=== PATIENT | female | born 1985 | race Caucasian/White ===

== ENCOUNTER 2016-12-27 10:41 | Emergency (ER) | payer MEDICAID ==
[~2016-12-27] VITALS: Ht 160 cm; Wt 93.1 kg
[~2016-12-27 10:41] MED LIST: FURO20TA8 PO; GABA-560 PO; INSU10SU6 SUBQ; IRON27TA PO; LANTUS IM/IV/SUBQ; METO-50 PO; SIMV20TA6 PO; ZAR2.5 PO
[2016-12-27 10:47] VITALS: BP 151/76
--- NOTE | 2016-12-27 10:55 | NUR ---
Patient ambulated ot bed 7. RN evaluating patient at bedside.
--- NOTE | 2016-12-27 10:59 | NUR ---
31F BIB FAMILY C/O LEFT HAND PAIN ONLY WITH MOVEMENT X YESTERDAY; MILD ERYTHEMA/SWELLING NOTED TO LEFT HAND AT THIS TIME; PT STATES " I THINK IT'S A SPIDER BITE"; LEFT RADIAL PULSE +3, LEFT CAP REFILL IMMEDIATE, NO LOSS OF SENSATION OR ROM TO LEFT HAND AT THIS TIME; PT STATES NO PAIN, N/V/D AT THIS TIME; PT AA&OX4, PERRLA, BL LUNG SOUNDS CLEAR, RR EVEN/UNLABORED, SKIN IS WARM/DRY/INTACT AT THIS TIME; STEADY GAIT; PT RESTING IN BED WITH HOB ELEVATED AND IN LOWEST POSITION; POSITIONED FOR COMFORT; ER MD MADE AWARE OF STATUS. WILL CONTINUE TO MONITOR.
--- NOTE | 2016-12-27 11:14 | NUR ---
ER MD DR. ABDULLAHI EVALUATING PT AT BEDSIDE.
[2016-12-27 11:33] VITALS: BP 146/83
--- NOTE | 2016-12-27 11:33 | NUR ---
Patient discharged with v/s stable. Written and verbal after care instructions given and explained. Patient alert, oriented and verbalized understanding of instructions. Ambulatory with to car. All questions addressed prior to discharge. ID band removed. Patient advised to follow up with PMD. Rx of MOTRIN 800MG TAB, BACTRIM DS 800MG-160MG TAB & KEFLEX 500MG CAP given. Patient educated on indication of medication including possible reaction and side effects. Opportunity to ask questions provided and answered.
== END 2016-12-27 11:33 | disposition home or self-care (01) ==
LOC: MED 10:41
DX: L03.114 Cellulitis of left upper limb (principal); J45.909 Unspecified asthma, uncomplicated; E11.9 Type 2 diabetes mellitus without complications; I10 Essential (primary) hypertension; Z79.899 Other long term (current) drug therapy
CPT/HCPCS: 82948; 99283

== ENCOUNTER 2018-04-07 09:39 | Emergency (ER) | payer MEDICAID ==
[~2018-04-07] VITALS: Ht 162.6 cm; Wt 94.8 kg
[2018-04-07 09:45] VITALS: BP 137/61
--- NOTE | 2018-04-07 10:00 | NUR ---
BIB SELF WITH C/O COLD SYMPTOMS SINCE THIS MORNING. PT STATES SHE HAS A PRODUCTIVE COUGH, RUNNY NOSE, GREEN PHELGM, -N/V/D. SKIN IS PINK/WARM/DRY; AAOX4 WITH EVEN AND STEADY GAIT; LUNGS CLEAR BL; HR EVEN AND REGULAR; PT DENIES ANY FEVER, CP, SOB AT THIS TIME; PATIENT STATES PAIN OF 0/10 AT THIS TIME; VSS; PATIENT POSITIONED FOR COMFORT; HOB ELEVATED; BEDRAILS UP X2; BED DOWN. ER MD MADE AWARE OF PT STATUS.
--- NOTE | 2018-04-07 10:20 | NUR ---
DR ABDULLAHI AT BEDSIDE.
[2018-04-07] MEDS ORDERED: KETOROLAC 60 MG/2 ML VIAL IM ONE (10:25)
[2018-04-07 10:43] VITALS: BP 137/61
--- NOTE | 2018-04-07 10:44 | NUR ---
Patient discharged with v/s stable. Written and verbal after care instructions given and explained. Patient alert, oriented and verbalized understanding of instructions. Ambulatory with steady gait. All questions addressed prior to discharge. ID band removed. Patient advised to follow up with PMD. Rx of MOTRIN, PREDNISONE given. Patient educated on indication of medication including possible reaction and side effects. Opportunity to ask questions provided and answered.
== END 2018-04-07 10:44 | disposition home or self-care (01) ==
LOC: MED 09:39
DX: R51 Headache (principal); R05 Cough; J45.909 Unspecified asthma, uncomplicated; E11.9 Type 2 diabetes mellitus without complications; I10 Essential (primary) hypertension; Z79.4 Long term (current) use of insulin; Z79.899 Other long term (current) drug therapy
CPT/HCPCS: 81002; 81025; 82948; 96372; 99283; J1885

== ENCOUNTER 2018-05-11 08:17 | Emergency (ER) | payer MEDICAID ==
[~2018-05-11] VITALS: Ht 162.6 cm; Wt 96.2 kg
[2018-05-11 08:32] VITALS: BP 147/72
[2018-05-11] MEDS ORDERED: SITA25TA3 PO (08:37)
--- NOTE | 2018-05-11 08:37 | NUR ---
PT AMBULATED TO BED 6
--- NOTE | 2018-05-11 08:50 | NUR ---
PATIENT PRESENTS TO ED WITH THE CHIEF C/O RASH FROM WAIST TO UPPER PART OF THE BODY SINCE A WEEK. ITCHY SOMETIMES PER PT. WAS TAKING BENADRYL SINCE LAST THURSDAY W/O RELIEF. DENIES ANY SOB OR DIFFICULTY BREATHING. DENIES ANY SWOLLEN TONGUE. DENIES ANY ALLERGIES. DENIES N/V/D. SKIN IS PINK/WARM/DRY WITH RASHES. LUNGS CLEAR BL. HR EVEN AND REGULAR; PT DENIES ANY FEVER, CP, OR COUGH AT THIS TIME. PATIENT STATES PAIN OF 0/10 AT THIS TIME. VSS; PATIENT POSITIONED FOR COMFORT; HOB ELEVATED; BEDRAILS UP X2; BED DOWN. ER MD MADE AWARE OF PT STATUS.
--- NOTE | 2018-05-11 08:54 | NUR ---
SEEN BY DR. HERNANDEZ.
--- NOTE | 2018-05-11 09:12 | NUR ---
DR. BAKER MADE AWARE OF PT CONCERN REGARDING LEFT EAR EVALUATION BY DOCTOR.
--- NOTE | 2018-05-11 09:21 | NUR ---
PT REEVALUATED BY DR. HERNANDEZ.
--- NOTE | 2018-05-11 09:22 | NUR ---
Patient discharged with v/s stable. Written and verbal after care instructions given and explained. Patient alert, oriented and verbalized understanding of instructions. Ambulatory with steady gait. All questions addressed prior to discharge. ID band removed. Patient advised to follow up with PMD. Rx of HYDROCORTISONE AND CLARITIN given. Patient educated on indication of medication including possible reaction and side effects. Opportunity to ask questions provided and answered.
[2018-05-11 09:23] VITALS: BP 135/70
== END 2018-05-11 09:22 | disposition home or self-care (01) ==
LOC: MED 08:17
DX: L42 Pityriasis rosea (principal); J45.909 Unspecified asthma, uncomplicated; E11.9 Type 2 diabetes mellitus without complications; I10 Essential (primary) hypertension; N28.9 Disorder of kidney and ureter, unspecified; Z79.4 Long term (current) use of insulin; Z79.899 Other long term (current) drug therapy
CPT/HCPCS: 99283